=== PATIENT | male | born 1935 | race Caucasian/White ===

== ENCOUNTER 2018-06-20 15:34 | Inpatient (IN) ==
[2018-06-20 16:01] LABS: Basophils # (auto) 0.01 K/uL (0-0.2); Basophils % (auto) 0.1 %; Eosinophils # (auto) 0.04 K/uL (0-0.5); Eosinophils % (auto) 0.5 %; Immature Granulocytes # (auto) 0.05 K/uL (0.00-0.02); Immature Granulocytes % (auto) 0.6 %; Lymphocytes # (auto) 0.83 K/uL (1.2-3.4); Lymphocytes % (auto) 10.8 %; Mean Corpuscular Hgb Conc 35.7 g/dL (32-36); Mean Corpuscular Volume 87.5 fL (80-100); Mean Platelet Volume 8.7 fL (7.4-10.4); Monocytes # (auto) 0.47 K/uL (0.11-0.59); Monocytes % (auto) 6.1 %; Neutrophils # (auto) 6.31 K/uL (1.4-6.5); Neutrophils % (auto) 81.9 %; Platelet Count 210 K/uL (130-400); RDW Coefficient of Variation 15.6 % (11.5-14.5); RDW Standard Deviation 50.2 fL (36.4-46.3); White Blood Count 7.71 K/uL (4.8-10.8)
[2018-06-20 16:11] LABS: INR 1.1 (0.9-1.1)
[2018-06-20 16:28] LABS: Alanine Aminotransferase 39 U/L (12-78); Albumin Level 3.3 gm/dl (3.4-5.0); Aspartate Aminotransferase 23 U/L (15-37); BUN Creatinine Ratio 22.8 (10-20); Blood Urea Nitrogen 21 mg/dl (7-18); Calcium 8.9 mg/dl (8.5-10.1); Carbon Dioxide 26 mmol/L (21-32); Chloride 100 mmol/L (98-107); Est GFR (African American) 90.7; Est GFR (Non-African American) 78.3; Glucose 91 mg/dl (70-99); Magnesium 2.2 mg/dl (1.8-2.4); Potassium 3.5 mmol/L (3.5-5.1); Sodium 132 mmol/L (136-145)
[2018-06-20 16:39] LABS: Albumin Globulin Ratio 0.7 (0.9-2); Alkaline Phosphatase 71 U/L (45-117); Globulin 4.5 gm/dl (2.5-4.0); Total Protein 7.8 gm/dl (6.4-8.2); Troponin I < 0.015 ng/ml (0-0.045)
--- NOTE | 2018-06-20 16:39 | XRay Report ---
XR chest 1V portable CLINICAL HISTORY: weakness dyspnea COMPARISON STUDY: No previous studies for comparison. FINDINGS: 4 cm focal infiltrate versus mass right midlung. Lungs otherwise appear clear. No significa nt cardiac enlargement. IMPRESSION: 4 cm mass right midlung versus consolidative infiltrate. CT chest is recommended as foll ow-up. The above report was generated using voice recognition software. It may contain grammatical, syntax or spelling errors. Electronically signed by: Sage Law M.D. 06/20/2018 4:37 PM
[2018-06-20] MEDS ORDERED: LEVOFLOXACIN/D5W 750 MG/150 ML BAG IV SCH (16:45)
[2018-06-20 18:50] LABS: Influenza A virus by PCR Neg for Influ A (Neg); Influenza B virus by PCR Neg for Influ B (Neg)
[2018-06-20] MEDS ORDERED: ACETAMINOPHEN 325 MG TAB PO PRN (18:54)
--- NOTE | 2018-06-20 19:33 | History & Physical Report ---
Date of Service June 20, 2018 Assessment & Plan (1) Weakness: Pt presented with c/o generalized weakness, increased over past 3 days. Decreased appetite and decreased oral intake past 3 days. In ER pt afebrile, P: 99, R: 18, BP: 165/76, 98% on RA. WBC: 7, Hgb: 15. TSH: 1.7. Na: 132. 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 Follows with Dr Martinez - sara/onc Pt had brain radiation. Discussion about starting chemo soon, pt hasn't started yet Outpatient CT Chest and Abd/Pelvis on 05/13/18: IMPRESSION 1. Right upper lobe 4.5 x 4.0 x 3.8 cm solid, spiculated mass, highly concerning for a primary lung neoplasm. 2. Couple of sub 5 mm ground-glass lung nodules. 3. Subtle irregularity in the lateral left 3rd rib is indeterminate. Please correlate with any prior outside imaging. Attention recommended on follow-up imaging. 4. No findings concerning for metastasis in the abdomen or pelvis. (3) Bronchitis: Possible bronchitis. Pt reports chronic cough, cough became loose and productive white sputum. Highest temp recorded at home 100.7F. Vitals stable, afebrile, no leukocytosis CXR: 4 cm mass right midlung versus consolidative infiltrate. CT chest is recommended as follow-up. Suspect mass is lung CA and not infiltrate -May need to consider further imaging if no improvement -Influenza swab negative -In ER received Levaquin -Levaquin -Monitor CBC (4) HTN (hypertension): Did not have any of his BP meds today -continue amlodipine, metoprolol DVT Prophylaxis -Heparin SQ DNR/DNI as per discussion with pt Follows with Dr Champagne at [facility] for routine care Pt was seen with Dr Li. 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 Patient with reported chronic dizziness for years. Denies any increased dizziness. Past 3 days has had increased weakness and poor oral intake. Yesterday was so weak that he Patient r eports chronic cough however the past week has noticed cough feels looser and is productive for white sputum. Patient complains of left chest/rib pain with coughing only. Reports his been checking his temperature and highest recorded was 100.7F yesterday. States chronic nasal congestion and rhinorrhea and uses Flonase. Pt follows with Dr Martinez hematology/oncology. Patient states completed radiation of brain 1 month ago. Most recent visit with oncology was last week and plan for chemo in the near future. Patient has not started chemotherapy yet.Denies diaphoresis, N/V/D/C, syncope, vision changes, neck pain, SOB, orthopnea, palpitations, hemoptysis, sore throat, choking, otalgia, abdominal pain, paresthesias, extremity edema, rashes, urinary symptoms. Pt denies any recent falls. Allergies Allergy/AdvReac Type Severity Reaction Status Date / Time Penicillins Allergy Severe Difficulty Verified 06/20/18 19:06 Breathing chocolate flavor Allergy Unknown Unknown Verified 06/21/18 10:11 Home Medications Home Medications Medication Instructions Recorded Confirmed Type amlodipine 10 mg PO QAM 06/20/18 06/20/18 History aspirin 81 mg PO QAM 06/20/18 06/20/18 History dexamethasone 4 mg PO UD 06/20/18 06/20/18 History fluticasone propionate [Flonase 1 spray INTRANASAL DAILY 06/20/18 06/20/18 History Allergy Relief] folic acid 1 mg PO QAM 06/20/18 06/20/18 History metoprolol tartrate 12.5 mg PO BID 06/20/18 06/20/18 History ondansetron HCl 8 mg PO TID 06/20/18 06/20/18 History prochlorperazine maleate 10 mg PO Q6H PRN 06/20/18 06/20/18 History trazodone 50 mg PO HS 06/20/18 06/20/18 History Past Med/Surg History Medical History Dyslipidemia (Chronic) HTN (hypertension) (Chronic) Lung cancer (Chronic) Surgical History History of laminectomy (Chronic) History of vasectomy (Chronic) H/O inguinal hernia repair (Chronic) History of appendectomy (Chronic) Social History Preferred Language: Estonian Communication Ability: Effective Entry Level Paralegal Required: No Beliefs That Will Affect Care: None Current Living Situation: Spouse Other Information That Helps Us Care for You: No Feels Safe at Home: Yes Safety Concerns: Feels Safe At This Time Smoking Status: Former smoker Tobacco Type: cigarettes Do You Dip or Chew Tobacco: No Smoking End Date: 1978 Second Hand Exposure: No Tobacco Cessation Education Requested by Patient: No Hx Alcohol Use: No Hx Substance Use: No Review of Systems Review of Systems: All systems reviewed & are unremarkable except as noted in HPI & below Physical Exam Physical Exam: General: no acute distress, moderately developed, moderately nourished Head: normocephalic, atraumatic Eyes: PERRL, EOM's intact, conjunctiva non-injected, anicteric ENT: normal inspection external ears, nose, mucous membranes mildly dry Neck: supple, trachea midline Lungs: no respiratory distress, faint rales bilateral bases CV: RRR, no murmur, no pretibial edema Abd: normal BS, soft, non-tender Ext: no cyanosis, no calf tenderness, Neuro: A&O x 3, no focal deficits noted, normal affect Skin: warm, dry Results & Data Vital Signs (Past 12 Hours) Vital Signs Temp Pulse Pulse Resp BP BP Pulse Ox 06/20/18 19:24 37 C 95 H 20 150/84 H 94 06/20/18 19:15 98 H 06/20/18 18:01 89 19 163/83 H 94 06/20/18 18:00 93 H 25 H 94 06/20/18 17:30 93 H 27 H 148/76 H 96 06/20/18 17:00 101 H 15 147/101 H 97 06/20/18 16:31 96 H 19 152/113 H 95 06/20/18 16:30 102 H 15 94 06/20/18 16:01 93 H 18 148/75 H 99 06/20/18 16:00 98 H 28 H 97 06/20/18 15:49 98 06/20/18 15:44 36.9 C 99 H 18 165/76 H 98 06/20/18 15:41 98 H 7 L 06/20/18 15:38 95 H 165/76 H 96 Laboratory Results Short CBC 06/20/18 Range/Units 15:49 WBC 7.71 (4.8-10.8) K/uL Hgb 15.0 (14.0-18.0) g/dL Hct 42.0 (42-52) % Plt Count 210 (130-400) K/uL BMP 06/20/18 15:49 Sodium 132 L Potassium 3.5 Chloride 100 Carbon Dioxide 26 BUN 21 H Creatinine 0.92 Glucose 91 Calcium 8.9 Cardiac Enzymes 06/20/18 Range/Units 15:49 Troponin I < 0.015 (0-0.045) ng/ml Liver Function 06/20/18 Range/Units 15:49 Total Bilirubin 1.0 (0.2-1) mg/dl AST 23 (15-37) U/L ALT 39 (12-78) U/L Alkaline Phosphatase 71 (45-117) U/L Albumin 3.3 L (3.4-5.0) gm/dl Diagnostic Findings CXR: IMPRESSION: 4 cm mass right midlung versus consolidative infiltrate. CT chest is recommended as follow-up. Supervising Physician Co-Signing Physician Notes Patient is an 82-year-old male with history of metastatic adenocarcinoma of the lung and other problems presents with history of generalized weakness, poor appetite, increased dizziness since 3 days duration. Reports chronic cough which has become productive since last few days. Reports associated chest discomfort with cough. He developed fever yesterday. Denies hemoptysis. On exam patient is moderately built and nourished, no apparent distress, + Oral Thrush, lungs are clear to auscultation, S1-S2, no murmur, no pedal edema, abdomen soft, nontender, Neurologically no focal deficits. Patient was noted to be clinically dehydrated. Flu screen was negative. Patient is started on Levaquin for possible bronchitis. Will give IV fluids. Chest x-ray showed 4 cm mass right midlung versus consolidative infiltrate. Also noted similar findings on prior CT in April. Will consult PT/OT. Consider broader spectrum Abx and Blood Cx if recurrence of fever. Nystatin for oral thrush. Boost supplement with meals. I personally reviewed the record. Patient is interviewed and examined at bedside. Patient's care is coordinated with Yaneth Lewis PA-C. Please refer to the documentation above for details of patient's presentation and for discussion of other issues.
[2018-06-20] MEDS: AMLODIPINE BESYLATE 5 MG TAB PO SCH (19:45)
[2018-06-20] MEDS: NYSTATIN SUSP 500,000 U/5 ML UDC PO SCH (19:45)
[2018-06-20] MEDS: SODIUM CHLORIDE 0.9% 1000ML 1,000 ML IV SCH (19:45)
[2018-06-20] MEDS: METOPROLOL TARTRATE 25 MG TAB PO SCH (19:45)
[2018-06-20] MEDS: HEPARIN SOD 5,000 UNIT/0.5 ML VIAL SQ SCH (21:37)
[2018-06-20] MEDS: TRAZODONE HCL 50 MG TAB PO SCH (21:37)
--- NOTE | 2018-06-20 21:54 | Emergency Department Note ---
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 The patient states that for the past 24 hours he has been unable to walk around or rise from the bed. He reports a cough that has been present for a while and is now productive of a small amount of phlegm. He notes loss of appetite. He denies chest pain, shortness of breath, abdominal pain, pain with urination, or melena. He states that he used to smoke several years ago. He is receiving chemo and radiation treatment for his cancer, and his most recent chemotherapy session was about four weeks ago. He states that he had a bowel movement yesterday. He follows Dr. Servin Oncology. Home Medications Home Medications Medication Instructions Recorded Confirmed Type amlodipine 10 mg PO QAM 06/20/18 06/20/18 History aspirin 81 mg PO QAM 06/20/18 06/20/18 History dexamethasone 4 mg PO UD 06/20/18 06/20/18 History fluticasone propionate [Flonase 1 spray INTRANASAL DAILY 06/20/18 06/20/18 History Allergy Relief] folic acid 1 mg PO QAM 06/20/18 06/20/18 History metoprolol tartrate 12.5 mg PO BID 06/20/18 06/20/18 History ondansetron HCl 8 mg PO TID 06/20/18 06/20/18 History prochlorperazine maleate 10 mg PO Q6H PRN 06/20/18 06/20/18 History trazodone 50 mg PO HS 06/20/18 06/20/18 History Allergies Allergy/AdvReac Type Severity Reaction Status Date / Time Penicillins Allergy Severe Difficulty Verified 06/20/18 19:06 Breathing Past Med/Surg History Medical History Dyslipidemia (Chronic) HTN (hypertension) (Chronic) Lung cancer (Chronic) Surgical History History of laminectomy (Chronic) History of vasectomy (Chronic) H/O inguinal hernia repair (Chronic) History of appendectomy (Chronic) Social History Preferred Language: Indonesian Communication Ability: Effective Hoop Bending Machine Operator Required: No Beliefs That Will Affect Care: None Current Living Situation: Spouse Other Information That Helps Us Care for You: No Feels Safe at Home: Yes Safety Concerns: Feels Safe At This Time Smoking Status: Former smoker Tobacco Type: cigarettes Do You Dip or Chew Tobacco: No Smoking End Date: 1978 Second Hand Exposure: No Tobacco Cessation Education Requested by Patient: No Hx Alcohol Use: No Hx Substance Use: No Review of Systems See HPI for pertinent positives & negatives. and A total of 10 systems reviewed and were otherwise negative Physical Exam Vital Signs Vital Signs - 24 hr 06/20/18 15:38 06/20/18 15:41 06/20/18 15:44 Temperature 36.9 C Temperature Source Oral Sepsis Recent Fever Within 48 Hours No Sepsis New/Unexplained Change in Mental Status No Sepsis Action Taken by Nursing No Action Required Pulse Rate 95 H 98 H 99 H Pulse Rate [Left Finger] Pulse Rate from SpO2 Sensor 90 Pulse Rhythm Regular Pulse Strength Normal Respiratory Rate 7 L 18 Respiratory Effort / Characteristics Non-Labored Spontaneous Respiratory Depth Normal Respiratory Pattern Regular Blood Pressure 165/76 H 165/76 H Blood Pressure [Left Arm] Blood Pressure Mean 105 105 Blood Pressure Mean [Left Arm] Blood Pressure Position Lying Pulse Oximetry 96 98 Oxygen Delivery Method Room Air Room Air 06/20/18 15:49 06/20/18 16:00 06/20/18 16:01 Temperature Temperature Source Sepsis Recent Fever Within 48 Hours Sepsis New/Unexplained Change in Mental Status Sepsis Action Taken by Nursing Pulse Rate 98 H 93 H Pulse Rate [Left Finger] Pulse Rate from SpO2 Sensor 101 H 94 H Pulse Rhythm Pulse Strength Respiratory Rate 28 H 18 Respiratory Effort / Characteristics Respiratory Depth Respiratory Pattern Blood Pressure 148/75 H Blood Pressure [Left Arm] Blood Pressure Mean 99 Blood Pressure Mean [Left Arm] Blood Pressure Position Pulse Oximetry 98 97 99 Oxygen Delivery Method Room Air Room Air Room Air 06/20/18 16:30 06/20/18 16:31 06/20/18 17:00 Temperature Temperature Source Sepsis Recent Fever Within 48 Hours Sepsis New/Unexplained Change in Mental Status Sepsis Action Taken by Nursing Pulse Rate 102 H 96 H 101 H Pulse Rate [Left Finger] Pulse Rate from SpO2 Sensor 101 H 92 H 101 H Pulse Rhythm Pulse Strength Respiratory Rate 15 19 15 Respiratory Effort / Characteristics Respiratory Depth Respiratory Pattern Blood Pressure 152/113 H 147/101 H Blood Pressure [Left Arm] Blood Pressure Mean 126 116 Blood Pressure Mean [Left Arm] Blood Pressure Position Pulse Oximetry 94 95 97 Oxygen Delivery Method Room Air Room Air Room Air 06/20/18 17:30 06/20/18 17:55 06/20/18 18:00 Temperature Temperature Source Sepsis Recent Fever Within 48 Hours Sepsis New/Unexplained Change in Mental Status Sepsis Action Taken by Nursing Pulse Rate 93 H 93 H Pulse Rate [Left Finger] Pulse Rate from SpO2 Sensor 99 H 86 Pulse Rhythm Pulse Strength Respiratory Rate 27 H 25 H Respiratory Effort / Characteristics Spontaneous SOB on Exertion Respiratory Depth Normal Respiratory Pattern Blood Pressure 148/76 H Blood Pressure [Left Arm] Blood Pressure Mean 100 Blood Pressure Mean [Left Arm] Blood Pressure Position Pulse Oximetry 96 94 Oxygen Delivery Method Room Air Room Air Room Air 06/20/18 18:01 06/20/18 19:15 06/20/18 19:24 Temperature 37 C Temperature Source Oral Sepsis Recent Fever Within 48 Hours Sepsis New/Unexplained Change in Mental Status Sepsis Action Taken by Nursing Pulse Rate 89 98 H Pulse Rate [Left Finger] 95 H Pulse Rate from SpO2 Sensor 89 Pulse Rhythm Pulse Strength Respiratory Rate 19 20 Respiratory Effort / Characteristics Respiratory Depth Respiratory Pattern Blood Pressure 163/83 H Blood Pressure [Left Arm] 150/84 H Blood Pressure Mean 109 Blood Pressure Mean [Left Arm] 106 Blood Pressure Position Pulse Oximetry 94 94 Oxygen Delivery Method Room Air GENERAL: Chronically ill and malnourished-appearing, sitting up in bed, no acute distress EYE EXAM: normal conjunctiva OROPHARYNX: no exudate, no erythema, lips, buccal mucosa, and tongue normal and mucous membranes are moist NECK: supple, no nuchal rigidity, no adenopathy, non-tender LUNGS: Clear to auscultation. Normal chest wall mechanics HEART: no murmurs, S1 normal and S2 normal ABDOMEN: abdomen soft, non-tender, normo-active bowel sounds, no masses, no rebound or guarding. BACK: Back is symmetrical on inspection and there is no deformity, no midline tenderness, no CVA tenderness. SKIN: no rashes and no bruising UPPER EXTREMITIES: upper extremities are grossly normal. LOWER EXTREMITIES: No pitting edema. NEURO EXAM: Normal sensorium, cranial nerves II-XII grossly intact, normal speech, no gross weakness of arms, no gross weakness of legs. Gross sensation intact. Course ED COURSE: Vital signs were reviewed and showed hypertension and tachycardia The patients medical record was reviewed. The above diagnostic studies were performed and reviewed. ED treatments and interventions as stated above. 1540: The patient was evaluated in room B9. A complete history and physical examination was performed. 1645: I consulted Molly Lewis PA-C: [facility] Hospitalist. The patient will be reevaluated for hospitalization. Based on the patients age, coexisting illnesses, exam and lab findings the decision to treat as an inpatient was made. The patient remained stable while under my care. The patient will be evaluated for further management. Administered Medications Amlodipine Besylate (Norvasc) 10 mg PO QAM AIXA Stop: 07/20/18 18:53 Last Admin: 06/20/18 19:45 Dose: 10 mg Documented by: [id number] Heparin Sodium (Porcine) (Heparin Sodium (Porcine)) 5,000 units SQ Q8 AIXA Stop: 07/20/18 21:59 Last Admin: 06/20/18 21:37 Dose: Not Given Documented by: [id number] Sodium Chloride (Nss 1000ml) 1,000 mls @ 80 mls/hr IV .[id number] AIXA Stop: 06/21/18 19:53 Last Admin: 06/20/18 19:45 Dose: 80 mls/hr Documented by: [id number] Metoprolol Tartrate (Lopressor) 12.5 mg PO BID AIXA Stop: 07/20/18 20:59 Last Admin: 06/20/18 19:45 Dose: 12.5 mg Documented by: [id number] Nystatin (Mycostatin) 5 ml PO QID AIXA Stop: 06/30/18 20:59 Last Admin: 06/20/18 19:45 Dose: 5 ml Documented by: [id number] Trazodone HCl (Desyrel) 50 mg PO HS AIXA Stop: 07/20/18 20:59 Last Admin: 06/20/18 21:37 Dose: 50 mg Documented by: [id number] Discontinued Medications Levofloxacin/Dextrose (Levaquin/D5w) 750 mg in 150 mls @ 100 mls/hr IV Q24H AIXA Stop: 06/22/18 16:44 Last Infusion: 06/20/18 18:30 Dose: 0 mls/hr Documented by: [id number] Admin: 06/20/18 17:00 Dose: 100 mls/hr Documented by: [id number] Medical Decision Making Differential Diagnosis Differential Diagnosis includes but is not limited to dehydration, stroke, anemia, hypoglycemia, hyponatremia, hypernatremia, urinary tract infection, pneumonia, bronchitis, sepsis, gastroenteritis, additional abdominal pathology, metabolic abnormalities and infections. Medical Records Attestation: I reviewed the patient's medical records. Home Medications Current Medication List: was personally reviewed by me Laboratory Data Attestation: I reviewed the patient's lab results. Result diagrams: 06/20/18 15:49 06/20/18 15:49 Lab Results 06/20/18 06/20/18 06/20/18 Range/Units 15:49 15:49 15:49 WBC 7.71 (4.8-10.8) K/uL RBC 4.80 (4.7-6.1) M/uL Hgb 15.0 (14.0-18.0) g/dL Hct 42.0 (42-52) % MCV 87.5 (80-100) fL MCH 31.3 (25-34) pg MCHC 35.7 (32-36) g/dL RDW Std Deviation 50.2 H (36.4-46.3) fL RDW Coeff of Twyla 15.6 H (11.5-14.5) % Plt Count 210 (130-400) K/uL MPV 8.7 (7.4-10.4) fL Immature Gran % (Auto) 0.6 % Neut % (Auto) 81.9 % Lymph % (Auto) 10.8 % [place] % (Auto) 6.1 % Eos % (Auto) 0.5 % Baso % (Auto) 0.1 % Immature Gran # (Auto) 0.05 H (0.00-0.02) K/uL Neut # (Auto) 6.31 (1.4-6.5) K/uL Lymph # (Auto) 0.83 L (1.2-3.4) K/uL [place] # (Auto) 0.47 (0.11-0.59) K/uL Eos # (Auto) 0.04 (0-0.5) K/uL Baso # (Auto) 0.01 (0-0.2) K/uL PT 11.0 (9.0-12.0) Seconds INR 1.1 (0.9-1.1) Sodium 132 L (136-145) mmol/L Potassium 3.5 (3.5-5.1) mmol/L Chloride 100 (98-107) mmol/L Carbon Dioxide 26 (21-32) mmol/L Anion Gap 6.0 (3-11) BUN 21 H (7-18) mg/dl Creatinine 0.92 (0.6-1.4) mg/dl Est Cr Clr Drug Dosing 62.0 ml/min Est GFR ( Amer) 90.7 Est GFR (Non-Af Amer) 78.3 BUN/Creatinine Ratio 22.8 H (10-20) Glucose 91 (70-99) mg/dl Calcium 8.9 (8.5-10.1) mg/dl Magnesium 2.2 (1.8-2.4) mg/dl Total Bilirubin 1.0 (0.2-1) mg/dl AST 23 (15-37) U/L ALT 39 (12-78) U/L Alkaline Phosphatase 71 (45-117) U/L Troponin I < 0.015 (0-0.045) ng/ml Total Protein 7.8 (6.4-8.2) gm/dl Albumin 3.3 L (3.4-5.0) gm/dl Globulin 4.5 H (2.5-4.0) gm/dl Albumin/Globulin Ratio 0.7 L (0.9-2) TSH 1.740 (0.300-4.500) uIu/ml Influenza Type A (PCR) (Neg) Influenza Type B (PCR) (Neg) 06/20/18 Range/Units 18:05 WBC (4.8-10.8) K/uL RBC (4.7-6.1) M/uL Hgb (14.0-18.0) g/dL Hct (42-52) % MCV (80-100) fL MCH (25-34) pg MCHC (32-36) g/dL RDW Std Deviation (36.4-46.3) fL RDW Coeff of Twyla (11.5-14.5) % Plt Count (130-400) K/uL MPV (7.4-10.4) fL Immature Gran % (Auto) % Neut % (Auto) % Lymph % (Auto) % [place] % (Auto) % Eos % (Auto) % Baso % (Auto) % Immature Gran # (Auto) (0.00-0.02) K/uL Neut # (Auto) (1.4-6.5) K/uL Lymph # (Auto) (1.2-3.4) K/uL [place] # (Auto) (0.11-0.59) K/uL Eos # (Auto) (0-0.5) K/uL Baso # (Auto) (0-0.2) K/uL PT (9.0-12.0) Seconds INR (0.9-1.1) Sodium (136-145) mmol/L Potassium (3.5-5.1) mmol/L Chloride (98-107) mmol/L Carbon Dioxide (21-32) mmol/L Anion Gap (3-11) BUN (7-18) mg/dl Creatinine (0.6-1.4) mg/dl Est Cr Clr Drug Dosing ml/min Est GFR ( Amer) Est GFR (Non-Af Amer) BUN/Creatinine Ratio (10-20) Glucose (70-99) mg/dl Calcium (8.5-10.1) mg/dl Magnesium (1.8-2.4) mg/dl Total Bilirubin (0.2-1) mg/dl AST (15-37) U/L ALT (12-78) U/L Alkaline Phosphatase (45-117) U/L Troponin I (0-0.045) ng/ml Total Protein (6.4-8.2) gm/dl Albumin (3.4-5.0) gm/dl Globulin (2.5-4.0) gm/dl Albumin/Globulin Ratio (0.9-2) TSH (0.300-4.500) uIu/ml Influenza Type A (PCR) Neg for Influ A (Neg) Influenza Type B (PCR) Neg for Influ B (Neg) Imaging Data Radiologist's Impression: Radiology results as stated below per my review and the radiologist's interpretation: XR chest 1V portable CLINICAL HISTORY: weakness dyspnea COMPARISON STUDY: No previous studies for comparison. FINDINGS: 4 cm focal infiltrate versus mass right midlung. Lungs otherwise appear clear. No significant cardiac enlargement. IMPRESSION: 4 cm mass right midlung versus consolidative infiltrate. CT chest is recommended as follow-up. The above report was generated using voice recognition software. It may contain grammatical, syntax or spelling errors. Electronically signed by: Sage Law M.D. 06/20/2018 4:37 PM ECG Data Attestation: I personally reviewed and interpreted this ECG as follows: Indication: weakness Rate (beats per minute): 98 Rhythm: sinus rhythm Findings: + other (normal axis) and + RBBB; no PVC Blood Pressure Blood Pressure Findings: Elevated blood pressure Blood Pressure Disposition: further management by hospitalist TIEN Narrative Patient is an 82-year-old male sent in by hematology oncology Dr. Servin who has non-small cell carcinoma of the lung and the brain presents the ER for diffuse weakness unable to get out of bed with a mild cough. Denies any fevers. Labs show no significant leukocytosis or anemia. INR is unremarkable. BMP, LFTs bilirubin and troponin was unremarkable. TSH was normal. Influenza was negative. Chest x-ray with mass in right middle lobe. Patient was given IV fluids. He was up to the bedside. She was covered with IV Levaquin due to the mass although I do favor this secondary to the cancer which the patient is aware of. He was updated at bedside. He was admitted to the hospitalist for further work-up. Of note he had no focal weakness to suggest CVA. Impression & Plan Weakness, Lung cancer Discharge Plan Visit Data *Final* Discharge Date/Time: 06/20/18 18:27 Chief Complaint: Weakness Stated Complaint: weakness ED Provider: Domingo Turcios Discharge Problem: Weakness, Lung cancer Patient Disposition: Admitted As Inpatient Discharge Instructions Interventions: ED Discharge Assessment Last Done: 06/20/18 18:27 The scribe's documentation has been prepared under my direction and personally reviewed by me in its entirety. I confirm that the note above accurately reflects all work, treatment, procedures, and medical decision making performed by me.
[2018-06-20 22:12] LABS: Appearance Urine Clear (Clear); Bacteria Urine Automated Negative (Negative); Bilirubin Urine Negative (Negative); Blood Urine Negative (Negative); Color Urine Yellow; Glucose Urine UA Negative (Negative); Ketones Urine 1+ (Negative); Leukocyte Esterase Urine Negative (Negative); Nitrite Urine Negative (Negative); Protein Urine Trace (Negative); RBC Urine Automated 0-4 /hpf (0-4); Specific Gravity Urine 1.023 (1.000-1.030); Urobilinogen Urine Negative (Negative)
[2018-06-21] MEDS: HEPARIN SOD 5,000 UNIT/0.5 ML VIAL SQ SCH ×2 (05:39→12:02)
[2018-06-21 06:01] LABS: Hematocrit (blood only) 36.6 % (42-52); Hemoglobin 12.9 g/dL (14.0-18.0); Mean Corpuscular Hgb Conc 35.2 g/dL (32-36); Mean Corpuscular Volume 87.8 fL (80-100); Mean Platelet Volume 8.6 fL (7.4-10.4); Platelet Count 185 K/uL (130-400); RDW Coefficient of Variation 15.5 % (11.5-14.5); Red Blood Count 4.17 M/uL (4.7-6.1); White Blood Count 7.65 K/uL (4.8-10.8)
[2018-06-21 06:24] LABS: BUN Creatinine Ratio 29.6 (10-20); Calcium 8.6 mg/dl (8.5-10.1); Est GFR (Non-African American) 87.1; Potassium 3.6 mmol/L (3.5-5.1)
[2018-06-21] MEDS: FLUTICASONE PROPIONATE NA SPR 16 GM BTL NAE SCH (07:48)
[2018-06-21] MEDS: SODIUM CHLORIDE 0.9% 1000ML 1,000 ML IV SCH (07:48)
[2018-06-21] MEDS: METOPROLOL TARTRATE 25 MG TAB PO SCH ×2 (07:49→20:28)
[2018-06-21] MEDS: AMLODIPINE BESYLATE 5 MG TAB PO SCH (07:49)
[2018-06-21] MEDS: FOLIC ACID 1 MG TAB PO SCH (07:49)
[2018-06-21] MEDS: NYSTATIN SUSP 500,000 U/5 ML UDC PO SCH ×4 (07:50→20:28)
[2018-06-21] MEDS: ASPIRIN 81 MG ECTAB PO SCH (07:50)
[2018-06-21] MEDS ORDERED: levoFLOXacin 500 MG TAB PO SCH (11:00)
--- NOTE | 2018-06-21 11:06 | Hospitalist Progress Note ---
Date of Service June 21, 2018 Assessment & Plan (1) Weakness: Patient presents with generalized weakness--worsening since past 3 days. 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 Follows with Dr Juan ruiz/onc S/P Brain radiation Planned to be started on Chemotherapy as outpatient --Outpatient CT Chest and Abd/Pelvis on 05/13/18: 1. Right upper lobe 4.5 x 4.0 x 3.8 cm solid, spiculated mass, highly concerning for a primary lung neoplasm. 2. Couple of sub 5 mm ground-glass lung nodules. 3. Subtle irregularity in the lateral left 3rd rib is indeterminate. Please correlate with any prior outside imaging. Attention recommended on follow-up imaging. 4. No findings concerning for metastasis in the abdomen or pelvis. Will Need FU with Oncology as outpatient (3) Bronchitis: Possible bronchitis No signs of Sepsis CXR: 4 cm mass right midlung versus consolidative infiltrate. CT chest is recommended as follow-up. Suspect mass is lung CA and not infiltrate Will consider CT chest if no improvement Influenza: negative Continue Levaquin Day # 2 Will get Blood cultures if develops fever (4) HTN (hypertension): Missed BP meds prior to admission continue amlodipine, metoprolol monitor Oral Thrush Continue Nystatin DVT Px: Heparin SQ Code Status DNR/DNI Disposition: PT/OT prior to discharge Follows with Dr Champagne at [facility] for routine care Subjective Patient is seen and examined at bedside Feels better today Reports intermittent cough with mild discomfort Denies SOB, dizziness, nausea, abd pain No other complaints Review of Systems Review of Systems: All systems reviewed & are unremarkable except as noted in HPI & below Physical Exam Physical Exam: Physical Exam: Vitals signs as noted above General Appearance:Moderately built and nourished, no apparent distress Head: normocephalic, Atraumatic Eyes: normal inspection, EOMI Neck: supple, Trachea midline Respiratory/Chest: Normal breath sounds, CTA Cardiovascular: S1, S2, No murmur Abdomen/GI:Soft, Non tender, Bowel sounds present Extremities/Musculoskelatal:normal inspection, no edema Neurologic/Psych:AAOX3, grossly no focal neurological deficits Skin: normal color, warm Results & Data Vital Signs (Past 12 Hours) Vital Signs Temp Pulse Pulse Resp BP BP Pulse Ox 06/21/18 09:00 75 06/21/18 07:23 37.1 C 78 18 161/72 H 95 06/21/18 04:00 37.0 C 81 18 157/80 H 95 06/20/18 23:30 87 06/20/18 23:07 37.4 C 67 18 128/73 94 Laboratory Results Short CBC 06/20/18 06/21/18 Range/Units 15:49 05:48 WBC 7.71 7.65 (4.8-10.8) K/uL Hgb 15.0 12.9 L (14.0-18.0) g/dL Hct 42.0 36.6 L (42-52) % Plt Count 210 185 (130-400) K/uL BMP 06/20/18 06/21/18 15:49 05:48 Sodium 132 L 137 Potassium 3.5 3.6 Chloride 100 104 Carbon Dioxide 26 22 BUN 21 H 22 H Creatinine 0.92 0.74 Glucose 91 80 Calcium 8.9 8.6 Cardiac Enzymes 06/20/18 Range/Units 15:49 Troponin I < 0.015 (0-0.045) ng/ml Liver Function 06/20/18 Range/Units 15:49 Total Bilirubin 1.0 (0.2-1) mg/dl AST 23 (15-37) U/L ALT 39 (12-78) U/L Alkaline Phosphatase 71 (45-117) U/L Albumin 3.3 L (3.4-5.0) gm/dl Urine 06/20/18 Range/Units 21:40 Urine Color Yellow Urine Appearance Clear (Clear) Urine pH 5.0 (4.5-7.5) Ur Specific [place] 1.023 (1.000-1.030) Urine Protein Trace H (Negative) Urine Glucose (UA) Negative (Negative) (1) Lung cancer Laterality: unspecified laterality Lung location: unspecified part of lung Qualified Code(s): C34.90 - Malignant neoplasm of unspecified part of unspecified bronchus or lung
--- NOTE | 2018-06-21 17:41 | Communication Note ---
Date of Service: June 21, 2018 Discussed with Patient's daughter today that patient is intermittently confused and seemed to be depressed and prefers to be discharged home. Patient's daughter stated that, he has been intermittently confused lately and they are in the process of transitioning him to Palliative/Hospice Care at home. They already have a hospital bed at home. Patient's Oncologist has offered him Chemotherapy but family believes that he will refuse it and prefers to be comfortable at home. Family is currently not interested in involving Palliative/Psychiatry while he is hospitalized and prefers the patient be discharged home. They are aware that patient is not interested in participating with PT/OT.
[2018-06-21] MEDS: DOXYCYCLINE HYCLATE 100 MG CAP PO SCH (20:28)
[2018-06-21] MEDS: TRAZODONE HCL 50 MG TAB PO SCH (20:28)
[2018-06-22 06:34] LABS: Hematocrit (blood only) 33.9 % (42-52); Hemoglobin 11.7 g/dL (14.0-18.0); Mean Corpuscular Hgb Conc 34.5 g/dL (32-36); Mean Corpuscular Volume 87.1 fL (80-100); Mean Platelet Volume 8.7 fL (7.4-10.4); Platelet Count 186 K/uL (130-400); RDW Coefficient of Variation 15.6 % (11.5-14.5); RDW Standard Deviation 50.1 fL (36.4-46.3); Red Blood Count 3.89 M/uL (4.7-6.1); White Blood Count 7.49 K/uL (4.8-10.8)
[2018-06-22 07:00] LABS: BUN Creatinine Ratio 28.7 (10-20); Calcium 8.3 mg/dl (8.5-10.1); Creatinine Clr Calc Pharmacy 85.1 ml/min; Est GFR (African American) 105.2; Est GFR (Non-African American) 90.8; Potassium 3.1 mmol/L (3.5-5.1)
[2018-06-22] MEDS ORDERED: POTASSIUM CHLORIDE 10 MEQ TABCR PO STA (07:46)
[2018-06-22] MEDS: FOLIC ACID 1 MG TAB PO SCH (09:06)
[2018-06-22] MEDS: AMLODIPINE BESYLATE 5 MG TAB PO SCH (09:07)
[2018-06-22] MEDS: DOXYCYCLINE HYCLATE 100 MG CAP PO SCH (09:07)
[2018-06-22] MEDS: ASPIRIN 81 MG ECTAB PO SCH (09:07)
[2018-06-22] MEDS: METOPROLOL TARTRATE 25 MG TAB PO SCH (09:07)
[2018-06-22] MEDS: FLUTICASONE PROPIONATE NA SPR 16 GM BTL NAE SCH (09:07)
[2018-06-22] MEDS: NYSTATIN SUSP 500,000 U/5 ML UDC PO SCH (09:08)
--- NOTE | 2018-06-22 12:35 | Hospitalist Progress Note ---
Date of Service June 22, 2018 Assessment & Plan (1) Weakness: Patient presents with generalized weakness--worsening since past 3 days. 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 Follows with Dr Martinez - sara/onc S/P Brain radiation Planned to be started on Chemotherapy as outpatient --Outpatient CT Chest and Abd/Pelvis on 05/13/18: 1. Right upper lobe 4.5 x 4.0 x 3.8 cm solid, spiculated mass, highly concerning for a primary lung neoplasm. 2. Couple of sub 5 mm ground-glass lung nodules. 3. Subtle irregularity in the lateral left 3rd rib is indeterminate. Please correlate with any prior outside imaging. Attention recommended on follow-up imaging. 4. No findings concerning for metastasis in the abdomen or pelvis. --Patient is in the process of being transitioned to Hospice eventually as per family --He has an appointment with his Oncologist on June 26, 2018 at 12:00Pm to discuss if patient agreeable to start on Chemotherapy --Family believes patient would refuse initiation of chemotherapy --Intermittently confused lately as per daughter--current baseline --likely due to Brain Mets --Patient/Family not interested in Involving Psychiatry/Palliative Care at this time to address goals of care/Depression --Patient refuses PT/OT evals despite counselling (3) Bronchitis: Possible bronchitis No signs of Sepsis CXR: 4 cm mass right midlung versus consolidative infiltrate. CT chest is recommended as follow-up. Suspect mass is lung CA and not infiltrate Will consider CT chest if no improvement Influenza: negative Continue Levaquin Day # 2>>Transitioned to Doxycycline (4) HTN (hypertension): Missed BP meds prior to admission continue amlodipine, metoprolol monitor Oral Thrush Continue Nystatin DVT Px: Heparin SQ Code Status DNR/DNI Disposition: Refuses PT/OT evals Family agrees to be discharged home and likely be transitioned to hospice eventually Follows with Dr Champagne at [facility] for routine care Subjective Patient is seen and examined at bedside Eager to get discharged No new complaints Has intermittent cough Denies SOB, dizziness, nausea, abd pain, chest pain Review of Systems Review of Systems: All systems reviewed & are unremarkable except as noted in HPI & below Physical Exam Physical Exam: Physical Exam: Vitals signs as noted above General Appearance:Moderately built and nourished, no apparent distress Head: normocephalic, Atraumatic Eyes: normal inspection, EOMI Neck: supple, Trachea midline Respiratory/Chest: Normal breath sounds, CTA Cardiovascular: S1, S2, No murmur Abdomen/GI:Soft, Non tender, Bowel sounds present Extremities/Musculoskelatal:normal inspection, no edema Neurologic/Psych:AAOX3, grossly no focal neurological deficits Skin: normal color, warm Results & Data Vital Signs (Past 12 Hours) Vital Signs Temp Pulse Resp BP BP Pulse Ox 06/22/18 12:08 36.8 C 94 H 20 150/71 H 95 06/22/18 07:59 36.8 C 75 18 153/73 H 93 06/22/18 04:00 36.8 C 69 18 144/77 H 94 06/22/18 00:35 37.0 C 99 H 20 152/65 H 95 Laboratory Results Short CBC 06/22/18 Range/Units 06:10 WBC 7.49 (4.8-10.8) K/uL Hgb 11.7 L (14.0-18.0) g/dL Hct 33.9 L (42-52) % Plt Count 186 (130-400) K/uL BMP 06/22/18 06:10 Sodium 136 Potassium 3.1 L Chloride 105 Carbon Dioxide 23 BUN 19 H Creatinine 0.67 Glucose 91 Calcium 8.3 L (1) Lung cancer Laterality: unspecified laterality Lung location: unspecified part of lung Qualified Code(s): C34.90 - Malignant neoplasm of unspecified part of unspecified bronchus or lung
--- NOTE | 2018-06-22 12:46 | Discharge Summary ---
Date of Service June 22, 2018 Admission HPI Per Admitting Provider Pt is 82 y/o M with PMH HTN, dyslipidemia, metastatic adenocarcinoma lung to brain, presented to ER with c/o weakness. Patient with reported chronic dizziness for years. Denies any increased dizziness. Past 3 days has had increased weakness and poor oral intake. Yesterday was so weak that he Patient reports chronic cough however the past week has noticed cough feels looser and is productive for white sputum. Patient complains of left chest/rib pain with coughing only. Reports his been checking his temperature and highest recorded was 100.7F yesterday. States chronic nasal congestion and rhinorrhea and uses Flonase. Pt follows with Dr Martinez hematology/oncology. Patient states completed radiation of brain 1 month ago. Most recent visit with oncology was last week and plan for chemo in the near future. Patient has not started chemotherapy yet.Denies diaphoresis, N/V/D/C, syncope, vision changes, neck pain, SOB, orthopnea, palpitations, hemoptysis, sore throat, choking, otalgia, abdominal pain, paresthesias, extremity edema, rashes, urinary symptoms. Pt denies any recent falls. Admission Exam Per Admitting Provider General: no acute distress, moderately developed, moderately nourished Head: normocephalic, atraumatic Eyes: PERRL, EOM's intact, conjunctiva non-injected, anicteric ENT: normal inspection external ears, nose, mucous membranes mildly dry Neck: supple, trachea midline Lungs: no respiratory distress, faint rales bilateral bases CV: RRR, no murmur, no pretibial edema Abd: normal BS, soft, non-tender Ext: no cyanosis, no calf tenderness, Neuro: A&O x 3, no focal deficits noted, normal affect Skin: warm, dry Principal Diagnosis Discharge Information Discharge Diagnosis Generalized weakness Bronchitis Metastatic lung Cancer Oral Thrush Discharge Goals Decrease discomfort,Improve function Discharge Activity Limitations Resume your previous activity Discharge Data Allergies Allergy/AdvReac Type Severity Reaction Status Date / Time Penicillins Allergy Severe Difficulty Verified 06/20/18 19:06 Breathing chocolate flavor Allergy Unknown Unknown Verified 06/21/18 10:11 Consultations 06/20/18 17:04 ED Decision to Admit Stat 06/20/18 18:54 Consult Case Management - Discharge Planning Routine Procedures Performed CXR: 4 cm mass right midlung versus consolidative infiltrate. CT chest is recommended as follow-up. Hospital Course (1) Weakness: Patient presents with generalized weakness--worsening since past 3 days. 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 Follows with Dr Juan ruiz/onc S/P Brain radiation Planned to be started on Chemotherapy as outpatient --Outpatient CT Chest and Abd/Pelvis on 05/13/18: 1. Right upper lobe 4.5 x 4.0 x 3.8 cm solid, spiculated mass, highly concerning for a primary lung neoplasm. 2. Couple of sub 5 mm ground-glass lung nodules. 3. Subtle irregularity in the lateral left 3rd rib is indeterminate. Please correlate with any prior outside imaging. Attention recommended on follow-up imaging. 4. No findings concerning for metastasis in the abdomen or pelvis. --Patient is in the process of being transitioned to Hospice eventually as per family --He has an appointment with his Oncologist on June 26, 2018 at 12:00Pm to discuss if patient agreeable to start on Chemotherapy --Family believes patient would refuse initiation of chemotherapy --Intermittently confused lately as per daughter--current baseline --likely due to Brain Mets --Patient/Family not interested in Involving Psychiatry/Palliative Care at this time to address goals of care/Depression --Patient refuses PT/OT evals despite counselling (3) Bronchitis: Possible bronchitis No signs of Sepsis CXR: 4 cm mass right midlung versus consolidative infiltrate. CT chest is recommended as follow-up. Suspect mass is lung CA and not infiltrate Will consider CT chest if no improvement Influenza: negative Continue Levaquin Day # 2>>Transitioned to Doxycycline (4) HTN (hypertension): Missed BP meds prior to admission continue amlodipine, metoprolol monitor Oral Thrush Continue Nystatin DVT Px: Heparin SQ Code Status DNR/DNI Disposition: Refuses PT/OT evals Family agrees to be discharged home and likely be transitioned to hospice eventually Follows with Dr Champagne at [facility] for routine care Total Time Total Time Spent Total Time Spent (In Minutes): 36 minutes Total Time Includes: Examination of the Patient, Discharge Planning, Medication Reconciliation, Communication With Other Providers and Other Discharge Plan Discharge Items Patient Disposition: Hospice - Home Reason For Visit: weakness Discharge Diagnosis: Generalized weakness Bronchitis Metastatic lung Cancer Oral Thrush Discharge Goals: Decrease discomfort and Improve function Activity: Resume your previous activity Exercise/Sports: Gradually increase as tolerated Non-emergency contact: Primary Care Provider and Oncologist Call non-emergency contact if: you have any medication questions, your symptoms worsen, your pain is not controlled, your pain is worsening, your pain is unusual for you, your pain is concerning for you and you have a fever Follow-up/Referrals: Minerva Champagne DO [Primary Care Provider] - Diet: Regular Addtl Provider Instructions: Follow up with your PCP Dr.Jessica Gonsalez on June 24, 2018 at 1:45 pm Follow up with your Oncologist on June 26, 2018 at 12:00 pm Complete the antibiotic course as prescribed Seek immediate medical attention if your symptoms reoccur or worsen Prescriptions: New doxycycline hyclate 100 mg Capsule 100 mg PO BID 5 Days Qty: 10 RF: 0 clotrimazole 10 mg Maddie 10 mg buccal [id number] 5 Days Qty: 30 RF: 0 Continued ondansetron HCl 8 mg tablet 8 mg PO TID RF: 0 prochlorperazine maleate 10 mg tablet 10 mg PO Q6H PRN (Reason: Nausea) RF: 0 aspirin 81 mg Tablet,Delayed Release (Dr/Ec) 81 mg PO QAM RF: 0 amlodipine 10 mg tablet 10 mg PO QAM RF: 0 dexamethasone 4 mg tablet 4 mg PO UD RF: 0 folic acid 1 mg tablet 1 mg PO QAM RF: 0 metoprolol tartrate 25 mg tablet 12.5 mg PO BID RF: 0 trazodone 50 mg Tablet 50 mg PO HS RF: 0 fluticasone propionate [Flonase Allergy Relief] 50 mcg/actuation [place],Suspension 1 spray INTRANASAL DAILY RF: 0 Stand-Alone Forms: makemoji/Other Patient Handouts: Clotrimazole Oral maddie Discharge Orders: Discharge Order (Routine); Ordered 06/22/18 Ordered By: Loi Li Admission Data Admit Date/Time: 06/20/18 17:38 Attending Provider: Loi Li Admit Provider: Loi Li Primary Care Provider: Minerva Champagne Other Providers: Loi Li Service: Telemetry Medical Other Interventions: Discharge Summary Assessment (RN) Last Done: 06/22/18 13:34 Pending Studies at Discharge: No DC Date/Time DO NOT enter until pt leaves facility: 06/22/18 15:10
[2018-06-22] MEDS ORDERED: CLOTRIMAZOLE 10 MG TROCHE BUCCAL SCH (15:00)
== END 2018-06-22 15:10 | disposition hospice, home (50) | DRG 181 ==
LOC: ED 15:34 → 2N 17:38